=== PATIENT | female | born 1945 | race Native Hawaiian/Other Pacific Islander ===

== ENCOUNTER 2019-09-01 12:53 | Outpatient (CLI) | payer OTHER ==
[2019-09-01 13:09] LABS: PLATELET COUNT 262 K/uL (152-353)
[2019-09-01 13:19] LABS: POTASSIUM 3.1 mmol/L (3.6-5.2)
== END 2019-09-01 20:20 | disposition home or self-care (01) ==
LOC: LABW 12:53
PROVIDERS: Internal Medicine Cardiovascular Disease
DX: Z79.899 Other long term (current) drug therapy (principal); R06.02 Shortness of breath
CPT/HCPCS: 36415; 80048; 80061; 83880; 85027

== ENCOUNTER 2019-09-21 10:45 | Outpatient (CLI) | payer OTHER | END 2019-09-21 22:29 | disposition home or self-care (01) | LOC: RESP 10:45 | DX: R06.02 Shortness of breath (principal) | CPT/HCPCS: 93306 ==

== ENCOUNTER 2019-09-22 08:10 | Outpatient (CLI) | payer OTHER ==
[~2019-09-22] VITALS: Ht 177.8 cm; Wt 69.4 kg
== END 2019-09-22 19:39 | disposition home or self-care (01) ==
LOC: NM 08:10
DX: R06.02 Shortness of breath (principal)
CPT/HCPCS: A9500; J2785

== ENCOUNTER 2020-04-20 09:03 | Outpatient (CLI) | payer OTHER | END 2020-04-20 20:05 | disposition home or self-care (01) | LOC: LABW 09:03 | PROVIDERS: Internal Medicine Cardiovascular Disease | DX: E78.49 Other hyperlipidemia (principal) | CPT/HCPCS: 36415; 80061 ==

== ENCOUNTER 2021-11-06 13:20 | Outpatient (CLI) | payer OTHER | END 2021-11-06 18:54 | disposition home or self-care (01) | LOC: CT 13:20 | PROVIDERS: ATTEND Nurse Practitioner Family | DX: M54.2 Cervicalgia (principal); R42 Dizziness and giddiness; E11.9 Type 2 diabetes mellitus without complications ==

== ENCOUNTER 2021-11-28 09:25 | Outpatient (CLI) | payer OTHER | END 2021-11-28 21:25 | disposition home or self-care (01) | LOC: MAMMO 09:25 | PROVIDERS: ATTEND Internal Medicine | DX: Z12.31 Encounter for screening mammogram for malignant neoplasm of breast (principal); Z13.820 Encounter for screening for osteoporosis; N95.1 Menopausal and female climacteric states; N95.8 Other specified menopausal and perimenopausal disorders ==

== ENCOUNTER 2022-01-31 09:24 | Outpatient (CLI) | payer OTHER | END 2022-01-31 21:10 | disposition home or self-care (01) | LOC: RAD 09:24 | PROVIDERS: ATTEND Internal Medicine Gastroenterology | DX: Z18.89 Other specified retained foreign body fragments (principal) ==

== ENCOUNTER 2022-02-19 09:01 | Outpatient (CLI) | payer OTHER | END 2022-02-19 18:57 | disposition home or self-care (01) | LOC: CT 09:01 | PROVIDERS: ATTEND Internal Medicine Gastroenterology | DX: K59.09 Other constipation (principal) | CPT/HCPCS: 36415; 82565; 84520; Q9963 ==

== ENCOUNTER 2022-03-04 11:47 | Outpatient (CLI) | payer OTHER | END 2022-03-04 18:57 | disposition home or self-care (01) | LOC: RAD 11:47 | PROVIDERS: ATTEND Internal Medicine | DX: R10.9 Unspecified abdominal pain (principal); K59.00 Constipation, unspecified ==

== ENCOUNTER 2022-10-09 15:16 | Outpatient (CLI) | payer OTHER | END 2022-10-09 22:30 | disposition home or self-care (01) | LOC: RAD 15:16 | PROVIDERS: ATTEND Internal Medicine | DX: M25.512 Pain in left shoulder (principal); M25.511 Pain in right shoulder ==